=== PATIENT | female | born 1930 | race Caucasian/White ===

== ENCOUNTER 2019-03-31 21:11 | Emergency (ER) | payer MEDICARE ==
--- OUTSIDE RECORDS SUMMARY | 2019-03-31 21:16 | XMS REPORT | Continuity of Care Document ---
:1930 External Reference #:[id number] Author Name Walker Berkowitz, OD Address [address] [place] [address] Care Team Providers Name Role Phone Law CERNA, Kee Care Team Information Library Media Specialist Unavailable Law CERNA, Kee Primary Care Physician Unavailable Payers Date Identification Numbers Payment Provider Subscriber Policy Number: [id number] Harsh Harrington David PayID: [id number] [address] [address] Policy Number: [id number] Antonio Chen Juany Hernandez PayID: [id number] [address] [address] [place] [address] Problems Active Problems Provider Date Essential hypertension Onset: 10/28/2013 Pure hypercholesterolemia Onset: 10/28/2013 Open-angle glaucoma Walker Bro O.D. Onset: 10/29/2013 Tear film insufficiency Walker Bro O.D. Onset: 10/29/2013 Retinal drusen Walker Bro O.D. Onset: 01/30/2014 Primary open angle glaucoma Walker Bro O.D. Onset: 08/27/2014 Presbyopia Walker Bro O.D. Onset: 08/27/2014 Epiretinal membrane Walker Bro O.D. 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 Onset: 08/27/2014 Visual disturbance Walker Bro O.D. Onset: 08/27/2014 Family History Date Family Member(s) Observation Comments General Heart Disease grandparent Father Cancer Father due to Liver Cancer () Father due to Colon Cancer () Mother Cancer Mother due to Cancer () - multiple myeloma Social History Type Date Description Comments Sex Unknown ETOH Use Denies alcohol use Tobacco Use Start: Unknown Patient has never smoked Smoking Status Reviewed: 03/04/19 Patient has never smoked Allergies, Adverse Reactions, Alerts Active Allergies Reaction Severity Comments Date Restasis 11/13/2018 Inactive Allergies NKDA 10/28/2013 Medications Active Medications SIG Qnty Indications Ordering Provider Date Latanoprost 1 drops both eyes 7.5ml Walker Berkowitz, OD 01/29/2019 0.005% every night Solution Combigan one drop twice a 15ml Walker Berkowitz, OD 01/02/2019 0.2-0.5% day both eyes Solution Soothe XP Xtra 1 drop both eyes 1Bottle Dave De La Cruz, 12/18/2018 Protection three times a day M.D. 1%-4.5% Solution Zolpidem Tartrate Take 1 Tablet By Unknown 5mg Mouth AT Bedtime Tablets as Needed For Insomnia Peg Earl CERNA, Dave 3350/Electrolytes 240gm Solution Rec Simvastatin Law CERNA, Kee 20mg Tablets Lisinopril Unknown 20mg Tablets Atenolol Unknown 25mg Tablets Omeprazole Earl CERNA, Dave 20mg Capsules DR History Medications Restasis one drop twice 60units Walker Berkowitz, 10/31/2018 - 0.05% Emulsion per day both OD 11/13/2018 eyes Lumigan one drop every 5ml Walker Berkowitz, 10/30/2018 - 0.01% Solution night at OD 11/27/2018 bedtime both eyes Restasis Multidose 1 drop both 16.5units Walker Berkowitz, 10/29/2018 - 0.05% eyes twice a OD 11/13/2018 Emulsion day Lumigan one drop every 7.500ml Walker Berkowitz, 09/26/2018 - 0.01% Solution night at OD 10/30/2018 bedtime both eyes Timolol Maleate one drop tid 15ml Walker Berkowitz, 09/26/2018 - 0.5% OU OD 11/27/2018 Solution Alphagan P 1 drop twice a 10ml Walker Berkowitz, 08/30/2018 - 0.1% Solution day both eyes OD 11/27/2018 Restasis Multidose 1 drop both 16.5ml Walker Berkowitz, 07/30/2018 - 0.05% eyes twice a OD 10/29/2018 Emulsion day Azopt one drop twice 10ml Walker Berkowitz, 06/07/2018 - 1% Suspension a day both OD 06/07/2018 eyes Timolol Maleate one drop twice 15ml Walker Berkowitz, 06/07/2018 - 0.5% a day both OD 06/07/2018 Solution eyes Azopt one drop three 10ml Walker Berkowitz, 06/07/2018 - 1% Suspension times per day OD 03/04/2019 both eyes Timolol Maleate one drop three 15ml Walker Woo, 06/07/2018 - 0.5% times per day OD 09/26/2018 Solution both eyes Lumigan one drop every 7.500ml Walker Berkowitz, 06/05/2018 - 0.01% Solution night at OD 09/26/2018 bedtime both eyes Dorzolamide HCL/Timolol instill 1 drop 10units Walker Berkowitz, 06/05/2018 - Maleate three tmies OD 10/30/2018 22.3-6.8mg/ml per day both Solution eyes Alphagan P 1 drop twice a 10ml Walker Berkowitz, 05/08/2018 - 0.1% Solution day both eyes OD 08/30/2018 Dorzolamide HCL/Timolol instill 1 drop 10units Walkeragueda Berkowitz, 05/08/2018 - Maleate three times OD 06/05/2018 22.3-6.8mg/ml per day both Solution eyes Restasis Multidose 1 drop both 16.5units Walker Berkowitz, 05/08/2018 - 0.05% eyes twice a OD 07/30/2018 Emulsion day Alphagan P 1 drop bid OU 10ml Walker Berkowitz, 03/26/2018 - 0.1% Solution OD 05/08/2018 Dorzolamide HCL/Timolol instill 1 drop 10units Walker Berkowitz, 03/26/2018 - Maleate tid OU OD 05/08/2018 22.3-6.8mg/ml Solution Alphagan P 1 drop tid OU 10ml Walker Berkowitz, 03/05/2018 - 0.1% Solution OD 03/26/2018 Lumigan one drop every 5ml Walker Berkowitz, 03/05/2018 - 0.01% Solution night at OD 06/05/2018 bedtime both eyes Dorzolamide HCL/Timolol instill 1 drop 10units Walker Berkowitz, 02/26/2018 - Maleate twice a day OD 03/26/2018 22.3-6.8mg/ml both eyes Solution Alphagan P 1 drop tid OU 10ml Walker Berkowitz, 02/15/2018 - 0.1% Solution OD 03/05/2018 Restasis Multidose 1 drop both 16.5units Walker Berkowitz, 02/05/2018 - 0.05% eyes twice a OD 05/08/2018 Emulsion day Cosopt PF one drop tid 60units Walkeragueda Berkowitz, 01/19/2018 - 22.3-6.8mg/ml OU OD 02/26/2018 Solution Restasis Multidose 1 drop both 16.5units Walker Berkowitz, 12/29/2017 - 0.05% eyes twice a OD 02/05/2018 Emulsion day Cosopt one drop twice 10ml Walker Berkowitz, 12/19/2017 - 22.3-6.8mg/ml a day both OD 02/26/2018 Solution eyes Cosopt PF one drop tid 60units Walker Berkowitz, 12/05/2017 - 22.3-6.8mg/ml OU OD 12/19/2017 Solution Lumigan one drop every 7.500ml Walker Berkowitz, 10/16/2017 - 0.01% Solution night at OD 03/05/2018 bedtime both eyes Restasis one drop twice 180units Walker Milleron, 10/04/2017 - 0.05% Emulsion per day both OD 05/08/2018 eyes Lumigan one drop every 7.500ml Walker Berkowitz, 09/27/2017 - 0.01% Solution night at OD 10/16/2017 bedtime both eyes Cosopt PF instill 1 drop 60units Walker Berkowitz, 07/31/2017 - 22.3-6.8mg/ml in both eyes OD 12/05/2017 Solution tid OU Zioptan 1 drops both 30units Walker Berkowitz, 07/31/2017 - 0.0015% Solution eyes every day OD 09/27/2017 Lumigan one drop every 7.500ml Walker Berkowitz, 05/02/2017 - 0.01% Solution night at OD 08/28/2017 bedtime both eyes Alphagan P 1 drop tid OU 15ml Walker Berkowitz, 04/19/2017 - 0.1% Solution OD 02/15/2018 Dorzolamide HCL/Timolol instill 1 drop 20ml Walker Berkowizt, 04/19/2017 - Maleate tid OU OD 05/29/2017 22.3-6.8mg/ml Solution Restasis one drop twice 180ml Walker Berkowitz, 04/05/2017 - 0.05% Emulsion per day both OD 10/04/2017 eyes Alphagan P 1 drops twice 5ml Walker Berkowitz 02/10/2017 - 0.1% Solution a day both OD 04/19/2017 eyes Dorzolamide HCL/Timolol Instill 1 Drop 10units Dave 02/10/2017 - Maleate In Each Eye Karthik De La Cruz 04/19/2017 22.3-6.8mg/ml Two Times Solution Daily Lumigan one drop every 7.500ml Walker Berkowitz 01/19/2017 - 0.01% Solution night at OD 05/02/2017 bedtime both eyes Alphagan P 1 drops bid OU 5ml Walker Berkowitz 12/26/2016 - 0.1% Solution OD 02/10/2017 Restasis one drop bid 180ml M35.01 Walker Berkowitz 10/07/2016 - 0.05% Emulsion OU OD 04/05/2017 Fluorometholone one drop tid 5ml Walker Berkowitz 10/03/2016 - 0.1% OU x 1 week, OD 11/17/2016 Suspension then d/c Timolol Maleate 1 drops right 15units H40.11x Dave 02/19/2016 - 0.5% eyes twice a 3 Karthik De La Cruz 11/17/2016 Solution day Dorzolamide HCL/Timolol instill 1 drop 10units Dave 01/17/2014 - Maleate in each eye Karthik De La Cruz 02/10/2017 22.3-6.8mg/ml two times Solution daily Alphagan P Instill 1 Drop 15units Walker 09/23/2013 - 0.1% Solution In Each Eye Norm Bro 12/26/2016 Two Times Daily Sulfamethoxazole/Trimet Take 1 Tablet Unknown - hoprim DS By Mouth Twice 10/30/2018 800-160mg Tablets A Day For 10 Days Lumigan instill 1 drop 7.5units Walker - 0.01% Solution to each eye Norm Bro 01/19/2017 every day Combigan one drop twice Unknown - 0.2-0.5% Solution a day both 01/02/2019 eyes Latanoprost 1 drops both Unknown - 0.005% Solution eyes every 01/29/2019 night Vital Signs Date Vital Result Comment 12/31/2018 3:29pm Intraocular Pressure Right Eye 19 mmHg Intraocular Pressure Left Eye 18 mmHg 11/27/2018 3:48pm Intraocular Pressure Right Eye 19 mmHg Intraocular Pressure Left Eye 17 mmHg 11/13/2018 4:04pm Intraocular Pressure Right Eye 18 mmHg Intraocular Pressure Left Eye 17 mmHg 10/30/2018 3:08pm Intraocular Pressure Right Eye 14 mmHg Intraocular Pressure Left Eye 16 mmHg 05/29/2018 1:35pm Intraocular Pressure Right Eye 15 mmHg Intraocular Pressure Left Eye 16 mmHg 02/26/2018 3:40pm Intraocular Pressure Right Eye 15 mmHg Intraocular Pressure Left Eye 15 mmHg 11/27/2017 2:58pm Intraocular Pressure Right Eye 16 mmHg Intraocular Pressure Left Eye 15 mmHg 08/28/2017 3:42pm Intraocular Pressure Right Eye 15 mmHg Intraocular Pressure Left Eye 15 mmHg 07/31/2017 2:33pm Intraocular Pressure Right Eye 16 mmHg Intraocular Pressure Left Eye 17 mmHg 02/16/2017 2:25pm Intraocular Pressure Right Eye 14 mmHg Intraocular Pressure Left Eye 15 mmHg 11/17/2016 2:16pm Intraocular Pressure Right Eye 15 mmHg Intraocular Pressure Left Eye 16 mmHg 10/07/2016 2:11pm Intraocular Pressure Right Eye 17 mmHg Intraocular Pressure Left Eye 17 mmHg 07/27/2016 3:42pm Intraocular Pressure Right Eye 16 mmHg Intraocular Pressure Left Eye 15 mmHg 06/03/2016 2:43pm Intraocular Pressure Right Eye 20 mmHg Intraocular Pressure Left Eye 19 mmHg 02/19/2016 2:35pm Intraocular Pressure Right Eye 21 mmHg Intraocular Pressure Left Eye 19 mmHg 12/07/2015 2:06pm Intraocular Pressure Right Eye 19 mmHg Intraocular Pressure Left Eye 18 mmHg 08/21/2015 1:24pm Intraocular Pressure Right Eye 19 mmHg Intraocular Pressure Left Eye 18 mmHg 05/21/2015 3:10pm Intraocular Pressure Right Eye 17 mmHg Intraocular Pressure Left Eye 17 mmHg 02/18/2015 11:39am Intraocular Pressure Right Eye 16 mmHg Intraocular Pressure Left Eye 15 mmHg 11/21/2014 1:42pm Intraocular Pressure Right Eye 18 mmHg Intraocular Pressure Left Eye 17 mmHg 08/27/2014 1:45pm Intraocular Pressure Right Eye 15 mmHg Intraocular Pressure Left Eye 15 mmHg 05/27/2014 2:41pm Intraocular Pressure Right Eye 16 mmHg Intraocular Pressure Left Eye 16 mmHg 01/30/2014 2:49pm Intraocular Pressure Right Eye 18 mmHg Intraocular Pressure Left Eye 18 mmHg 10/29/2013 2:48pm Intraocular Pressure Right Eye 17 mmHg Intraocular Pressure Left Eye 17 mmHg Procedures Date Code Description Status 10/30/2018 85024 Eye Exam Est Intermediate Completed 05/29/2018 74860 Oct, Optic Nerve Completed 05/29/2018 12808 Eye Exam Est Intermediate Completed 02/26/2018 82701 Fundus Photography W/Interpretation & Report Completed 02/26/2018 51176 Ophthalmoscopy Subsequent Completed 02/26/2018 62960 Refraction Completed 02/26/2018 54544 Eye Exam Est Intermediate Completed 08/28/2017 25248 Eye Exam Est Intermediate Completed 07/31/2017 98378 Visual Field Exam Extended, Unilateral Or Bilateral Completed 07/31/2017 01060 Eye Exam Est Intermediate Completed 02/16/2017 59538 Eye Exam Est Intermediate Completed 11/17/2016 13250 Eye Exam Est Comprehensive Completed 11/17/2016 38110 Refraction Completed 11/17/2016 47825 Ophthalmoscopy Subsequent Completed 11/17/2016 67231 Fundus Photography W/Interpretation & Report Completed 10/03/2016 08941 Eye Exam Est Intermediate Completed 07/27/2016 55217 Eye Exam Est Intermediate Completed 06/03/2016 10806 Oct, Optic Nerve Completed 06/03/2016 54816 Visual Field Exam Extended, Unilateral Or Bilateral Completed 06/03/2016 40796 Eye Exam Est Intermediate Completed 02/19/2016 90406 Eye Exam Est Intermediate Completed 12/07/2015 44724 Visual Field Exam Extended, Unilateral Or Bilateral Completed 12/07/2015 61381 Eye Exam Est Intermediate Completed 08/21/2015 23821 Fundus Photography W/Interpretation & Report Completed 08/21/2015 06068 Ophthalmoscopy Subsequent Completed 08/21/2015 64546 Visual Field Exam Extended, Unilateral Or Bilateral Completed 08/21/2015 30365 Eye Exam Est Intermediate Completed 05/21/2015 10381 Eye Exam Est Intermediate Completed 05/21/2015 64196 Oct, Optic Nerve Completed 02/18/2015 57481 Visual Field Exam Extended, Unilateral Or Bilateral Completed 02/18/2015 63953 Eye Exam Est Intermediate Completed 08/27/2014 45058 Refraction Completed 08/27/2014 39398 Eye Exam Est Comprehensive Completed 05/27/2014 74437 Oct, Optic Nerve Completed 05/27/2014 25711 Eye Exam Est Intermediate Completed 10/29/2013 89582 Visual Field Exam Extended, Unilateral Or Bilateral Completed 10/29/2013 40302 Eye Exam Est Intermediate Completed 04/16/2013 92402 Fundus Photography W/Interpretation & Report Completed 04/16/2013 19764 Ophthalmoscopy Subsequent Completed 04/16/2013 82942 Refraction Completed 04/16/2013 83621 Eye Exam Est Comprehensive Completed 09/05/2011 44938 Eye Exam Est Comprehensive Completed 09/05/2011 36972 Visual Field Exam Extended, Unilateral Or Bilateral Completed 06/06/2011 56602 Fundus Photography W/Interpretation & Report Completed 06/06/2011 36272 Refraction Completed 06/06/2011 00717 Eye Exam Est Comprehensive Completed 12/03/2010 18397 Eye Exam Est Intermediate Completed 09/03/2010 04847 Eye Exam Est Intermediate Completed 08/03/2010 96139 Eye Exam Est Intermediate Completed 07/05/2010 28777 Visual Field Exam Extended, Unilateral Or Bilateral Completed 07/05/2010 65779 Gonioscopy Completed 07/05/2010 12917 Eye Exam Est Intermediate Completed 07/05/2010 44191 Corneal Pachymetry, Unilateral/Bilateral Completed 06/25/2010 76286 Fundus Photography W/Interpretation & Report Completed 06/25/2010 13966 Refraction Completed 06/25/2010 36061 Eye Exam New Comprehensive Completed 06/25/2010 17663 Corneal Pachymetry, Unilateral/Bilateral Completed Encounters Type Date Location Provider Dx Diagnosis Office Visit 12/31/2018 Main Office Walker Berkowitz, OD H40.1133 Primary open-angle 3:15p glaucoma, bilateral, severe stage M35.01 Sicca syndrome with keratoconjunctivitis Office Visit 11/27/2018 Main Office Walker M35.01 Sicca syndrome with 2:45p Berkowitz, OD keratoconjunctivitis H40.1133 Primary open-angle glaucoma, bilateral, severe stage Office Visit 11/13/2018 3:30p Main Office Walker Berkowitz, H40.1133 Primary open-angle OD glaucoma, bilateral, severe stage M35.01 Sicca syndrome with keratoconjunctivitis Office Visit 11/27/2017 3:15p Main Office Walker Berkowitz, H40.1133 Primary open-angle OD glaucoma, bilateral, severe stage M35.01 Sicca syndrome with keratoconjunctivitis Office Visit 11/21/2014 2:15p Main Office Walker Bro, 365.11 Glaucoma Primary O.D. Open Angle 375.15 Dry Eye Syndrome Tear Film Insufficiency Unspec Office Visit 01/30/2014 2:15p Main Office Walker Bro, 365.10 Glaucoma Open O.D. Angle Unspec 375.15 Dry Eye Syndrome Tear Film Insufficiency Unspec 362.57 Drusen (Degenerative) Office Visit 03/04/2011 2:00p Main Office DR. Cynthia Caldwell, 365.10 Glaucoma Open O.D. Angle Unspec Plan of Treatment 03/04/2019 - Walker Berkowitz, ODH40.1133 Primary open-angle glaucoma, bilateral, severe stageFollow up:3 mos OCT nerve, sooner PRN
[2019-03-31 21:24] VITALS: BP 173/87
--- NOTE | 2019-03-31 21:51 | UC ---
Lower Extremity/Ankle HPI - HPI Summary HPI Summary: Ms. Hernandez noticed a few hours ago that her left ankle was somewhat swollen and achy. That ankle does occasionally swell up but usually not as badly and it usually doesn't take. She has been in her house all day and guarantees me that she has not injured her ankle. - History of Current Complaint Chief Complaint: UCLowerExtremity Stated Complaint: ANKLE SWELLING Time Seen by Provider: 03/31/19 21:15 Hx Obtained From: Patient Onset/Duration: Sudden Onset Severity Initially: Mild Severity Currently: Moderate Pain Intensity: 8 Aggravating Factor(s): Standing Alleviating Factor(s): Nothing Able to Bear Weight: Yes - Allergies/Home Medications Allergies/Adverse Reactions: Allergies Allergy/AdvReac Type Severity Reaction Status Date / Time No Known Allergies Allergy Verified 03/31/19 21:23 Home Medications: Home Medications Bimatoprost 0.01% OPHTH (NF) [Lumigan 0.01% OPHTH (NF)] 1 drop BOTH EYES DAILY 03/31/19 [History Confirmed 03/31/19] Lisinopril 20 mg PO DAILY 03/31/19 [History Confirmed 03/31/19] PMH/Surg Hx/FS Hx/Imm Hx Endocrine History: Dyslipidemia Cardiovascular History: Hypertension GI/ History: Other - Ischemic colitis - Surgical History Surgical History: None Surgery Procedure, Year, and Place: Hysterectomy, Cataract - Social History Alcohol Use: None Substance Use Type: None Smoking Status (MU): Never Smoked Tobacco - Immunization History Most Recent Influenza Vaccination: 2014 Most Recent Tetanus Shot: 2008 Most Recent Pneumonia Vaccination: unsure Review of Systems All Other Systems Reviewed And Are Negative: Yes Constitutional: Positive: Negative, Other - She has had quite a bit of weight loss recently and is scheduled to have a CT scan this coming week for diagnostic purposes. Skin: Positive: Negative ENT: Positive: Negative Respiratory: Positive: Negative Cardiovascular: Positive: Negative Musculoskeletal: Positive: Edema Physical Exam - Summary Physical Exam Summary: She is nontoxic in appearance with stable vital signs. Triage Information Reviewed: Yes Appearance: Well-Appearing, No Pain Distress Vital Signs: Initial Vital Signs Temp 97.7 F 03/31/19 21:14 Pulse 93 03/31/19 21:14 Resp 12 03/31/19 21:14 BP 173/87 03/31/19 21:14 Pulse Ox 98 03/31/19 21:14 Vital Signs Reviewed: Yes Eyes: Positive: Conjunctiva Clear ENT: Positive: Normal ENT inspection - She Neck: Positive: Supple - No JVD Respiratory Exam: Normal Respiratory: Positive: Lungs clear, Normal breath sounds, No respiratory distress Cardiovascular Exam: Normal - She has a split S2 Cardiovascular: Positive: RRR, No Murmur, Pulses Normal Musculoskeletal: Positive: Edema @ - She's got mild pitting edema in her bilateral ankles. Neurological Exam: Normal Psychological Exam: Normal Skin Exam: Normal Lower Extremity Course/Dx - Course Course Of Treatment: Not really in the position to diagnose peripheral edema here in the urgent care setting. The fact that his bilateral is reassuring to me that this doesn't represent DVT however I'm aware that she does potentially have some risk factor with recent weight loss. She has no clinical signs of congestive heart failure. She had blood drawn about a year ago and had a slightly low protein at that time. I think it's reasonable that we draw blood here today to check a d-dimer and also her blood proteins and have her follow-up with Dr. stanton the next couple of days. This is likely a benign process and I recommended she elevate her legs as much as possible. - Differential Dx/Diagnosis Provider Diagnosis: Peripheral edema Discharge - Sign-Out/Discharge Documenting (check all that apply): Patient Departure All imaging exams completed and their final reports reviewed: No Studies - Discharge Plan Condition: Stable Disposition: HOME Patient Education Materials: Leg Edema (ED) Referrals: Kee Unger MD [Primary Care Provider] - Additional Instructions: Your blood test results should be available tomorrow and Dr. Unger will be able to access them as well as the chart. - Billing Disposition and Condition Condition: STABLE Disposition: Home
[2019-03-31 22:35] LABS: Albumin 4.3 g/dL (3.2-5.2); Calcium 9.6 mg/dL (8.6-10.3); Potassium 3.6 mmol/L (3.5-5.0); Total Bilirubin 0.5 mg/dL (0.2-1.0)
[2019-03-31 22:41] LABS: EGFR Non-African American 71.1 (>60); Globulin 2.1 g/dL (2-4); Total Protein 6.4 g/dL (6.4-8.9)
== END 2019-03-31 22:02 | disposition home or self-care (01) ==
LOC: UCEAST 21:11
DX: R60.9 Edema, unspecified (principal); E78.5 Hyperlipidemia, unspecified; I10 Essential (primary) hypertension
CPT/HCPCS: 36415; 80053; 85379; 99211; G0463